=== PATIENT | female | born 1940 | race Caucasian/White ===

== ENCOUNTER 2021-11-16 08:39 | Observation (INO) | payer MEDICARE ==
[2021-11-16 09:38] LABS: Hemoglobin 12.5 g/dL (12.0-15.5); Mean Corpuscular HGB CONC 32.4 g/dL (32.0-36.0); Mean Corpuscular Hemoglobin 29.5 pg (27.0-33.0); Mean Platelet Volume 10.3 fl (7.4-10.4); Platelet Count 166 10x3/uL (150-450); RBC Distribution Width 13.8 % (11.5-14.5); Red Blood Cell (RBC) Count 4.24 10x6/uL (3.90-5.03); White Blood Cell (WBC) Count 4.9 10x3/uL (3.5-10.5)
[2021-11-16 10:02] LABS: ALT (SGPT) 10 U/L (8-55); AST (SGOT) 38 U/L (5-34); Albumin 3.2 g/dL (3.4-4.8); Alkaline Phosphatase 39 U/L (40-110); Anion Gap 14 mmol/L (10-20); BUN (Urea Nitrogen) 8 mg/dL (9.8-20.1); Bilirubin, Total 0.4 mg/dL (0.2-1.2); CK (CPK) 37 U/L (29-168); Calc. Creatinine Clearance 0 mL/min (70-130); Calcium 7.7 mg/dL (7.8-10.44); Carbon Dioxide 22 mmol/L (23-31); Chloride 109 mmol/L (98-107); Globulin 1.8 g/dL (2.4-3.5); Glucose 109 mg/dL (83-110); Lipase 38 U/L (8-78); Potassium 3.6 mmol/L (3.5-5.1); Sodium 141 mmol/L (136-145)
[2021-11-16 10:22] LABS: MDiff Complete? YES
[2021-11-16] MEDS ORDERED: Acetaminophen 325 MG TAB PO PRN (10:43)
[2021-11-16] MEDS ORDERED: Senokot S 8.6-50 MG TAB PO PRN (10:43)
[2021-11-16] MEDS ORDERED: Ondansetron PF 4 MG/2 ML Vial IVP PRN (10:43)
[2021-11-16] MEDS ORDERED: Bisacodyl 5 MG TAB PO PRN (10:43)
[2021-11-16 10:47] LABS: Band 4 % (5-11); Lymphocytes 14 % (21-51); Monocytes 15 % (0-10); Neutrophil 54 % (42-75); Reactive Lymphocytes 13 % (0-10)
[2021-11-16 10:48] LABS: Platelet Morphology Comment Appears Adequate
[2021-11-16 11:02] LABS: Bilirubin Neg (Negative); Blood, Urine Negative (Negative); Clarity Slightly Cloudy (Clear); Glucose, Urine (Dipstick) Normal (Negative); Ketone, Urine Negative (Negative); Leukocyte 100 (Negative); Nitrite Negative (Negative); Protein, Urine (Dipstick) Negative (Neg-Trace); Specific Gravity, Urine 1.005 (1.002-1.036); Urobilinogen Normal mg/dL (Less than 2)
[2021-11-16 11:10] LABS: RBC/HPF 0-3 HPF (0-3); Renal Epithelial 0-3 HPF (None Seen); Squamous Epithelial 0-3 HPF (0-3); WBC/HPF 0-3 HPF (0-3)
[2021-11-16 11:11] LABS: Bacteria/HPF None Seen HPF (None Seen)
[2021-11-16 11:34] LABS: Troponin I Less than 0.010 ng/mL (< 0.028)
[2021-11-16 13:55] VITALS: BMI 19.3
[2021-11-16 14:20] LABS: Troponin I Less than 0.010 ng/mL (< 0.028)
[2021-11-16] MEDS: Sodium Chloride 0.9% 1,000 ML IV SCH (14:20)
[2021-11-16 15:09] LABS: Hemoglobin A1c 5.7 % (4.0-6.0)
[2021-11-16 17:27] LABS: SARS-CoV-2 NAA Rapid Test DETECTED (NotDetected)
[2021-11-16 18:33] LABS: Bilirubin Neg (Negative); Blood, Urine Negative (Negative); Clarity Clear (Clear); Glucose, Urine (Dipstick) Normal (Negative); Ketone, Urine Negative (Negative); Leukocyte 25 (Negative); Nitrite Negative (Negative); Protein, Urine (Dipstick) Negative (Neg-Trace); Specific Gravity, Urine 1.005 (1.002-1.036); Urobilinogen Normal mg/dL (Less than 2)
[2021-11-16 18:43] LABS: Urine Culture Reflex No No
[2021-11-16 18:46] LABS: Legionella Urinary Ag Negative (Negative); Strep pneumo Urine Ag NEGATIVE (NEGATIVE)
[2021-11-16 18:57] LABS: Bacteria/HPF None Seen HPF (None Seen); RBC/HPF None Seen HPF (0-3); Squamous Epithelial 0-3 HPF (0-3); WBC/HPF 0-3 HPF (0-3)
[2021-11-16] MEDS ORDERED: FLU VACC QS2021-22(65YR UP)/PF 240 MCG/0.7 ML SYRINGE IM ONE (19:30)
[2021-11-17] MEDS: Sodium Chloride 0.9% 1,000 ML IV SCH ×2 (01:00→09:09)
[2021-11-17 05:00] LABS: #Monocytes 0.6 10x3/uL (0.0-1.1); #Neutrophils 2.7 10x3/uL (1.5-8.4); %Basophils 0.3 % (0.0-2.0); %Eosinophils 0.3 % (0.0-6.0); %Lymphocytes 40.5 % (18.0-47.0); %Monocytes 11.1 % (0.0-10.0); %Neutrophils 47.5 % (40.0-75.0); Mean Corpuscular HGB CONC 32.5 g/dL (32.0-36.0); Mean Corpuscular Hemoglobin 29.3 pg (27.0-33.0); Mean Corpuscular Volume 90.1 fl (81.6-98.3); Mean Platelet Volume 10.3 fl (7.4-10.4); Platelet Count 166 10x3/uL (150-450); RBC Distribution Width 13.8 % (11.5-14.5); Red Blood Cell (RBC) Count 4.44 10x6/uL (3.90-5.03); White Blood Cell (WBC) Count 5.8 10x3/uL (3.5-10.5)
[2021-11-17 05:08] LABS: Anion Gap 12 mmol/L (10-20); BUN (Urea Nitrogen) 5 mg/dL (9.8-20.1); Calc. Creatinine Clearance 52 mL/min (70-130); Calcium 8.1 mg/dL (7.8-10.44); Carbon Dioxide 24 mmol/L (23-31); Chloride 112 mmol/L (98-107); Glucose 105 mg/dL (83-110); Magnesium 1.8 mg/dL (1.6-2.6); Phosphorus 2.7 mg/dL (2.3-4.7); Potassium 4.2 mmol/L (3.5-5.1); Sodium 144 mmol/L (136-145)
[2021-11-17 11:40] VITALS: BP 143/62; TEMP 99.2
== END 2021-11-17 16:17 | disposition home health service (06) ==
LOC: CSHERS 08:39 → SUATTDRO 08:39 → INTOOBSV 10:42 → CSHTELE 10:42 → UNDOADMIN 12:59 → UNDODISIN 11-17 16:17
PROVIDERS: ADMIT Family Medicine; ATTEND Family Medicine
DX: U07.1 COVID-19 (principal); J12.82 Pneumonia due to coronavirus disease 2019; R55 Syncope and collapse; E78.5 Hyperlipidemia, unspecified; E86.0 Dehydration; Z86.73 Personal history of transient ischemic attack (TIA), and cerebral infarction without residual deficits; Z87.442 Personal history of urinary calculi; Z79.82 Long term (current) use of aspirin; Z79.899 Other long term (current) drug therapy; Z88.0 Allergy status to penicillin
CPT/HCPCS: 0240U; 36415; 71045; 80048; 80053; 81003; 81015; 82550; 83036; 83605; 83690; 83735; 83880; 84100; 84145; 84484; 85025; 85379; 86140; 87040; 87086; 87449; 87899; 93005; J7050

== ENCOUNTER 2025-06-28 08:31 | Outpatient (CLI) | payer MEDICARE | END 2025-06-28 08:32 | disposition home or self-care (01) | LOC: CSHRAD 08:31 | PROVIDERS: ATTEND Student in an Organized Health Care Education/Training Program | DX: Q39.6 Congenital diverticulum of esophagus (principal); K21.9 Gastro-esophageal reflux disease without esophagitis; R13.10 Dysphagia, unspecified | CPT/HCPCS: 74220 ==

== ENCOUNTER 2025-08-05 13:44 | Outpatient (CLI) | payer MEDICARE | END 2025-08-05 13:45 | disposition home or self-care (01) | LOC: CSHCT 13:44 | PROVIDERS: ATTEND Family Medicine | DX: Q39.6 Congenital diverticulum of esophagus (principal); K57.10 Diverticulosis of small intestine without perforation or abscess without bleeding | CPT/HCPCS: 71250; 74177 ==